=== PATIENT | male | born 1990 | race African-American/Black ===

== ENCOUNTER 2017-05-21 04:14 | Emergency (ER) | payer OTHER ==
[2017-05-21 05:22] LABS: BASOPHIL% 0.6 % (0-2.5); EOSINOPHIL% 0.1 % (0.0-7.0); HEMATOCRIT 41.7 % (38.0-50.0); HEMOGLOBIN 13.9 gm/dL (13.0-16.0); LYMPHOCYTE% 15.5 % (17.0-45.0); MEAN CELL VOLUME 88.3 FL (83-96); MEAN CORPUSCULAR HEMOGLOBIN 29.3 PG (28-34); MEAN CORPUSCULAR HGB CONC 33.2 g/dL (30-36); MEAN PLATELET VOLUME 8.2 FL (6.5-11.5); MONOCYTE# 0.5 X10e3 (0-1.0); MONOCYTE% 8.1 % (3.0-12.0); NEUTROPHIL% 75.7 % (40-75); PLATELET COUNT 271 X10e3 (140-420); RED BLOOD COUNT 4.73 X10e (3.90-5.60); WHITE BLOOD COUNT 6.7 X10e3 (4.0-10.5)
[2017-05-21 05:24] LABS: DIFF IND NO
[2017-05-21 05:32] LABS: AMPHETAMINE NEG (NEG); BARBITURATES NEG (NEG); BENZODIAZEPINES NEG (NEG); COCAINE NEG (NEG); MARIJUANA NEG (NEG); OPIATES NEG (NEG); TRICYCLIC ANTIDEPRESSANTS NEG (NEG); U METHADONE NEG (NEG)
[2017-05-21 05:58] LABS: ALCOHOL BLOOD <5 mg/dL (0); BLOOD UREA NITROGEN 18 mg/dL (9-23); CALCIUM SERUM 9.4 mg/dL (8.4-10.2); CARBON DIOXIDE 25 mmol/L (22-31); CHLORIDE 102 mmol/L (100-111); GLOM FILT RATE Estimated 120.7 mL/min (>60); GLUCOSE FASTING 110 mg/dL (70-110); POTASSIUM 3.8 mmol/L (3.5-5.1); SODIUM 136 mmol/L (135-145)
[2017-05-21 07:20] LABS: SALICYLATE <4.0 mg/dL
[2017-05-21 07:23] LABS: ACETAMINOPHEN <10 ug/mL
== END 2017-05-21 11:35 ==
LOC: CED 04:14
PROVIDERS: Emergency Medicine; Physician Assistant
DX: F19.959 Other psychoactive substance use, unspecified with psychoactive substance-induced psychotic disorder, unspecified (principal); F60.0 Paranoid personality disorder; R45.851 Suicidal ideations; R45.850 Homicidal ideations; F17.200 Nicotine dependence, unspecified, uncomplicated
CPT/HCPCS: 36415; 80048; 80307; 85025; 96374; 99285; G0480; J2060

== ENCOUNTER 2017-05-21 10:53 | Inpatient (IN) | payer OTHER ==
--- NOTE | ~2017-05-21 | PN ---
Unit #: [id number] #: [id number] Patient: CALIXTO RUTHERFORD [id number] [facility] [address] [place] [address] [id number] I MR#: [id number] NAME: CALIXTO RUTHERFORD ROOM: P130 Age: 27 Sex: M Admission Date: 05/21/2017 : 1990 Attending Physician: Norma Alejandra M.D. Admitting Physician: Norma Alejandra M.D. Primary Care Physician: To Doctor Not In System [facility] PROGRESS NOTES DATE May 22, 2017 DISCUSSION Mr. Rutherford is a 27-year-old white male, with mood disorder, and psychosis, who was seen today and chart was reviewed and the case was discussed with the staff. He has been anxious, withdrawn, and seclusive to himself. Meanwhile, he has been cooperative with the treatment recommendations and he has been taking the medications and tolerating them fairly well with no reported side effects. MENTAL STATUS EXAMINATION Young white male, who was casually dressed with fair personal hygiene and appears to be in no acute distress or discomfort. He was awake and alert on interaction with intact orientation. His mood is anxious with a congruent affect. He denies any suicidal or homicidal ideations. His insight and judgment remain slightly impaired. TREATMENT PLAN 1. We will continue him on his current medications and treatment protocol, and will monitor his response to the medications, and make further adjustments as needed. 2. We will continue to followup. Dictated by... Ronal Quiroz/jose TD: 05/22/2017 12:52 JOB #: [id number] Unit #: [id number] #: [id number] Patient: CALIXTO RUTHERFORD PROGRESS NOTES Page 1 of 1 X Norma Alejandra MD PROGRESS NOTE
--- NOTE | ~2017-05-21 | PN ---
Unit #: [id number] #: [id number] Patient: CALIXTO RUTHERFORD [id number] [facility] [address] [place] [address] [id number] MR#: [id number] NAME: CALIXTO RUTHERFORD ROOM: 12 Age: 27 Sex: M Admission Date: 05/21/2017 : 1990 Attending Physician: Norma Alejandra M.D. Admitting Physician: Norma Alejandra M.D. Primary Care Physician: Generic Doctor Not In System [facility] PROGRESS NOTES DATE May 25, 2017 DISCUSSION Mr. Rutherford is a 37-year-old white male, who was seen today and chart was reviewed and the case was discussed with the staff. He has been anxious, withdrawn, but has not shown any agitation, irritability, and has been cooperative with the treatment recommendations. MENTAL STATUS EXAMINATION Young white male, who was casually dressed with fair personal hygiene and appears to be in no acute distress or discomfort. He was awake and alert with intact orientation. His mood is anxious with a congruent affect. He denies any suicidal or homicidal ideations. His insight and judgment remain slightly impaired. TREATMENT PLAN 1. We will continue him on his current medications and treatment protocol, and will monitor his response to the medications, and make further adjustments as needed. 2. We will continue to followup. Dictated by... Ronal Quiroz/jose TD: 05/26/2017 11:46 JOB #: [id number] [facility] PROGRESS NOTES Page 1 of 1 X Norma Alejandra MD PROGRESS NOTE
--- NOTE | ~2017-05-21 | PN ---
Unit #: [id number] #: [id number] Patient: CALIXTO RUTHERFORD [id number] [facility] [address] [place] [address] [id number] I MR#: [id number] NAME: CALIXTO RUTHERFORD ROOM: 12 Age: 27 Sex: M Admission Date: 05/21/2017 : 1990 Attending Physician: Norma Alejandra M.D. Admitting Physician: Norma Alejandra M.D. Primary Care Physician: To Doctor Not In System [facility] PROGRESS NOTES DATE May 23, 2017 DISCUSSION Mr. Rutherford is a 27-year-old male, who was seen today and chart was reviewed and the case was discussed with the staff. He remains anxious, withdrawn, and rather seclusive to himself with blunted affect and minimal interaction. Meanwhile, he has been compliant with the treatment recommendations and he has been taking the medications and tolerating them fairly well with no reported side effects. MENTAL STATUS EXAMINATION Young white male, who was casually dressed with fair personal hygiene and appears to be in no acute distress or discomfort. He was awake and alert with intact orientation. His mood is anxious with a congruent affect. He denies any suicidal or homicidal ideations. His insight and judgment remain slightly impaired. TREATMENT PLAN 1. We will continue him on his current medications and treatment protocol, and will monitor his response to the medications, and make further adjustments as needed. 2. We will continue to followup. Dictated by... Ronal Quiroz/jose TD: 05/23/2017 09:44 JOB #: [id number] Unit #: [id number] #: [id number] Patient: CALIXTO RUTHERFORD PROGRESS NOTES Page 1 of 1 X Norma Alejandra MD PROGRESS NOTE
--- NOTE | ~2017-05-21 | PN ---
Unit #: [id number] #: [id number] Patient: CALIXTO RUTHERFORD [id number] [facility] [address] [place] [address] [id number] I MR#: [id number] NAME: CALIXTO RUTHERFORD ROOM: 12 Age: 27 Sex: M Admission Date: 05/21/2017 : 1990 Attending Physician: Norma Alejandra M.D. Admitting Physician: Ronal Quiroz PROGRESS NOTES DATE OF SERVICE: 05/24/2017 SUBJECTIVE Mr. Rutherford is a 27-year-old male with mood disorder and psychosis, who was seen today and chart was reviewed, and case was discussed with the staff. He remains anxious, withdrawn, depressed, and rather seclusive to himself. Meanwhile, he has been cooperative to treatment recommendations and has been taking the medications and tolerating them fairly well with no reported side effects. MENTAL STATUS EXAMINATION Young male, who was casually dressed with fair personal hygiene, appears to be in no acute distress or discomfort. He was awake and alert on interaction with intact orientation. His mood was anxious with a congruent affect. He denies any suicidal or homicidal ideations. His insight and judgment remain slightly impaired. TREATMENT PLAN 1. We will continue him on his current medications and treatment protocol. We will monitor his response to the medications and make further adjustments as needed. 2. We will continue to follow up. Dictated by... Ronal Quiroz/black TD: 05/24/2017 18:34 JOB #: [id number] [facility] PROGRESS NOTES Page 1 of 1 X Norma Alejandra MD PROGRESS NOTE
--- NOTE | ~2017-05-21 | TN ---
Unit #: [id number] #: [id number] Patient: CALIXTO CHRIS [id number] [facility] [address] [place] [address] [id number] I MR#: [id number] NAME: CALIXTO CHRIS ROOM: P112 Age: 27 Sex: M Admission Date: 05/21/2017 : 1990 Discharge Date: 05/26/2017 Attending Physician: Norma Alejandra M.D. Primary Care Physician: oT Doctor Not In System LOC TRANSFER NOTE DATE OF SERVICE: 05/29/2017 IDENTIFYING DATA Mr. Chris is a 27-year-old single male, who is a resident of [place], [place], and was stepped down to the outpatient treatment program from the adult inpatient psychiatric unit. CHIEF COMPLAINT "I need to go back to work." HISTORY OF PRESENT ILLNESS Mr. Chris is a 27-year-old male, who was hospitalized under my care from 05/21/2017 to 05/26/2017 at [facility] due to acute psychosis and was started on Risperdal and stabilized and stepped down to the outpatient treatment program. When seen by me, the patient appears to be still having some thought blocking, bizarre behavior, and disorganized thought and speech, though he stated that he is ready to go back to work and was not opening up very much and overall was seen to be rather a poor historian, though no agitation, aggression, or irritability was noticed. He was seen to have a good personal hygiene and appears to be rather calm in the chair in the office. SUBSTANCE ABUSE HISTORY The patient denies any history of alcohol or drug abuse. PAST PSYCHIATRIC HISTORY The patient has had history of inpatient and outpatient psychiatric treatment and has been diagnosed and treated for bipolar disorder. He is currently on Risperdal 1 mg b.i.d. PAST MEDICAL HISTORY No acute or chronic medical illnesses. ALLERGIES No known medication allergies. PERSONAL AND SOCIAL HISTORY A 27-year-old male, who reports that he is single, unemployed, and lives at home with his mother and has fairly decent social support system. MENTAL STATUS EXAMINATION Unit #: [id number] #: [id number] Patient: CALIXTO CHRIS Young male who was casually dressed with fair personal hygiene, appears to be in no acute distress or discomfort. He was awake and alert on interaction with intact orientation. His mood was anxious and depressed with a congruent affect. His speech was slow and goal directed. He denies any suicidal or homicidal ideations and also denies any auditory or visual hallucinations. His insight and judgment remain slightly impaired. DIAGNOSTIC IMPRESSION Psychiatric: Bipolar disorder, most recent episode depressed, recurrent, moderate, with psychosis. Medical: None. Stressors: Moderate psychosocial stressors. TREATMENT PLAN 1. The patient has presented with history of mood disorder, and has been decompensating and we will recommend enrolling him into the outpatient treatment program and maintaining him on his current medications. We will monitor his response and make further adjustments as needed. 2. Supportive therapy was provided to the patient. 3. Safe, structured, and nourishing environment will be provided. ESTIMATED LENGTH OF STAY 14 to 21 days. ABILITY TO HELP SELF Limited. WILLINGNESS TO HELP SELF The patient appears to be willing to help self. STRENGTHS 1. Communicative. 2. Cooperative. PROBLEMS 1. Chronic dysphoric symptoms. 2. Poor social support system. DISCHARGE CRITERIA This will be contingent upon the patient's ability to show resolution of his depression and anxiety and psychosis as well as his ability to stay safe to himself, particularly after discharge from the hospital. Dictated by... Ronal Quiroz/black TD: 05/30/2017 06:09 JOB #: [id number] Unit #: [id number] #: [id number] Patient: CALIXTO CHRIS LOC TRANSFER NOTE Page 1 of 1 X Norma Alejandra MD X LOC TRANSFER NOTE
--- NOTE | ~2017-05-21 | PA ---
Unit #: [id number] #: [id number] Patient: CALIXTO RUTHERFORD [id number] [facility] [address] [place] [address] [id number] MR#: [id number] NAME: CALIXTO RUTHERFORD ROOM: P130 Age: 27 Sex: M Admission Date: 05/21/2017 : 1990 Date of Assessment: 05/22/2017 Attending Physician: Norma Alejandra M.D. Admitting Physician: Norma Alejandra M.D. Primary Care Physician: Generic Doctor Not In System PSYCHIATRIC ASSESSMENT IDENTIFYING DATA Mr. Sands is a 27-year-old, single. male, who is a resident of [place], [place], and was transferred to us from [facility]. CHIEF COMPLAINT "I'm hearing voices." HISTORY OF PRESENT ILLNESS Mr. Sands is a 27-year-old male, who apparently presented to [facility], and stated "I'm hearing voices after using drugs. I was doing drugs, I was hearing voices. I called 911 and told them that I was dying and I thought I was going to burn down the apartment and felt like my thoughts were telling me to do that." The patient reports that he is unsure what type of drugs he is using, "I don't know, sometimes I leave my door unlocked, the people might come in, what can I do." He reports that he has been mixing drugs and has been taking some synthetic drugs as well and was seen to be acutely psychotic, bizarre, agitated, irritable with paranoid and delusional behavior and voicing suicidal thoughts and thoughts of burning down the apartment was seen to be a significant threat to himself and others, and as such, recommendation for inpatient level of care for safety and stabilization was made and the patient was transferred to us. SUBSTANCE ABUSE HISTORY The patient reports history of alcohol, cannabis, acid, amphetamines, benzodiazepines, and spice abuse and currently it appears that he has been mixing drugs including cannabis and spice. PAST PSYCHIATRIC HISTORY The patient has had a history of outpatient psychiatric treatment in the past. Review of the medical records indicate currently he is not taking any treatment program, is not seeing a psychiatrist, and is not taking any psychotropic medications. PAST MEDICAL HISTORY No acute or chronic medical illnesses. ALLERGIES No known medication allergies. PERSONAL AND SOCIAL HISTORY A 27-year-old male, who reports that he is single, Unit #: [id number] #: [id number] Patient: CALIXTO RUTHERFORD unemployed, and lives alone and has poor social support system. MENTAL STATUS EXAMINATION Young male, who was casually dressed with fair personal hygiene, appears to be in no acute distress or discomfort. He was awake and alert with impaired attention and concentration. His mood was anxious with a congruent affect. His speech was slow and restricted in content. His thought processes were disorganized with some looseness of associations, paranoid ideations and auditory hallucinations. His insight and judgment remain significantly impaired. DIAGNOSTIC IMPRESSION Psychiatric: Bipolar disorder, most recent episode depressed, recurrent, moderate, with psychosis; cannabis dependence, moderate; psychostimulant dependence, moderate. Medical: None. Stressors: Moderate psychosocial stressors. TREATMENT PLAN 1. The patient has presented with a history of mood disorder and psychosis and substance abuse and has been decompensating and will need inpatient hospitalization for safety and stabilization. We will start him back on his home medications. We will adjust the medications and monitor response. 2. Supportive therapy was provided to the patient. 3. Safe, structured, and nourishing environment will be provided. ESTIMATED LENGTH OF STAY 5 to 7 days. ABILITY TO HELP SELF Limited. WILLINGNESS TO HELP SELF The patient appears to be willing to help self. STRENGTHS 1. Communicative. 2. Cooperative. PROBLEMS 1. Chronic dysphoric symptoms. 2. Chronic chemical dependency. 3. Poor social support system. DISCHARGE CRITERIA This will be contingent upon the patient's ability to show resolution of his depression and psychosis and his ability to stay safe to himself, particularly after discharge from the hospital. Dictated by... Ronal Quiroz/claral Unit #: [id number] #: [id number] Patient: CALIXTO RUTHERFORD TD: 05/22/2017 07:19 JOB #: [id number] PSYCHIATRIC ASSESSMENT Page 1 of 1 X Norma Alejandra MD PSYCHIATRIC ASSESSMENT
--- NOTE | ~2017-05-21 | DS ---
Unit #: [id number] #: [id number] Patient: CALIXTO RUTHERFORD [id number] [facility] [address] [place] [address] [id number] I MR#: [id number] NAME: CALIXTO RUTHERFORD ROOM: 12 Age: 27 Sex: M Admission Date: 05/21/2017 : 1990 Discharge Date: 05/26/2017 Attending Physician: Norma Alejandra M.D. Primary Care Physician: Generic Doctor Not In System DISCHARGE SUMMARY IDENTIFYING DATA Mr. Rutherford is a 27-year-old single male who is a resident of [place], [place] and was transferred to us from [facility]. DISCHARGE DIAGNOSES Psychiatric: Bipolar disorder, most recent episode depressed, recurrent, moderate, with psychosis; cannabis dependence, moderate; psychostimulant dependence, moderate. Medical: None. Stressors: Moderate psychosocial stressors. HISTORY OF PRESENT ILLNESS Please see initial psychiatric evaluation for details. PAST PSYCHIATRIC HISTORY Please see initial psychiatric evaluation for details. PAST MEDICAL HISTORY Please see initial psychiatric evaluation for details. HOSPITAL COURSE The patient was [facility] and was oriented to the hospital environment. Routine p.r.n. medications were initiated, and he was started back on his home medications and medications were adjusted and he was closely monitored. Risperdal 1 mg b.i.d. was initiated with good tolerability and therapeutic response, followed by which, it was decided that the patient will be discharged home and will continue treatment on an outpatient basis. DISCHARGE MEDICATIONS Risperdal 1 mg b.i.d. DISCHARGE CONDITION Stable. PROGNOSIS Fair. Dictated by... Norma Alejandra M.D. IAA/modl Unit #: [id number] #: [id number] Patient: CALIXTO RUTHERFORD TD: 05/26/2017 07:09 JOB #: [id number] DISCHARGE SUMMARY Page 1 of 1 X Norma Alejandra MD X DISCHARGE SUMMARY
--- NOTE | ~2017-05-21 | HP ---
Unit #: [id number] #: [id number] Patient: VALENTINO RUTHERFORD [id number] [place] [address] [id number] I MR#: [id number] NAME: VALENTINO RUTHERFORD ROOM: P130 Age: 27 Sex: M Admission Date: 05/21/2017 : 1990 Attending Physician: Norma Alejandra M.D. Admitting Physician: Norma Alejandra M.D. Primary Care Physician: Generic Doctor Not In System HISTORY AND PHYSICAL HISTORY OF PRESENT ILLNESS Valentino is a 27 year old admitted to [address] [place] [address] with psychotic behavior. He remains very psychotic, is a poor historian so his history is taken from his chart. PAST MEDICAL HISTORY Nothing significant. PAST SURGICAL HISTORY Nothing reported. ALLERGIES No known drug allergies. SOCIAL HISTORY Smokes less than 1/2 pack per day. Drinks alcohol frequently, has a history of illicit substance abuse to include benzodiazepines, amphetamines and spice. FAMILY HISTORY Medically not known. REVIEW OF SYSTEMS He does not answer any questions appropriately. There are no reports of nausea, vomiting or diarrhea. He has had no cough or increased temperature. CURRENT MEDICATIONS 1. Desyrel 100 mg q.h.s. 2. Milk of Magnesia p.r.n. 3. Maalox p.r.n. 4. Tylenol p.r.n. 5. Thorazine 50 mg q. 6 hours p.r.n. 6. Nicotine patch 14 mg daily. PHYSICAL EXAMINATION GENERAL: Alert, thin, in no apparent distress. VITAL SIGNS: Blood pressure 100/56, heart rate 80, respirations 16, temperature 98.6. WEIGHT: 170. HEIGHT: 6 feet 0 inches. SKIN: Warm and dry without rash or lesion. HEENT: Normocephalic. TMs not viewed. Oral and nasal passages clear. Unit #: [id number] #: [id number] Patient: VALENTINO RUTHERFORD Conjunctivae clear. PERRLA. EOMs intact. NECK: Supple without lymphadenopathy or thyromegaly. HEART: Regular rate and rhythm without murmur. LUNGS: Clear. ABDOMEN: Soft, nontender. : Not done. EXTREMITIES: No evidence of cyanosis, clubbing or edema. Moves all without focal deficit. NEUROLOGICAL: Unable to complete extended exam. He does move all extremities without focal deficit. Hand city attorney is equal and gait is normal. IMPRESSION Psychiatric admission. RECOMMENDATIONS PSYCHIATRIC: Per psychiatrist. MEDICAL: See no contraindication to participate in facility's activities. MEDICAL PROGNOSIS Good. MEDICAL CONDITION Stable. Dictated by... Aleah Mauricio P.A.-C. for Ronal Samayoa/lenka TD: 05/21/2017 23:08 JOB #: [id number] HISTORY AND PHYSICAL Page 1 of 1 X Aleah Mauricio HISTORY AND PHYSICAL
== END 2017-05-26 21:25 | disposition home or self-care (01) | DRG 885 ==
LOC: P1S 11:00
DX: F31.5 Bipolar disorder, current episode depressed, severe, with psychotic features (principal); F15.20 Other stimulant dependence, uncomplicated; F12.20 Cannabis dependence, uncomplicated; F17.210 Nicotine dependence, cigarettes, uncomplicated